=== PATIENT | female | born 1950 | race Caucasian/White ===

== ENCOUNTER 2016-12-29 09:52 | Emergency (ER) | payer MEDICARE, MEDICAID ==
--- NOTE | 2016-12-29 12:18 | RAD ---
CHEST 2 VIEWS: Date: 12/29/16 Comparison made with the 12/05/[address] [facility]. FINDINGS: Findings of COPD are present as usual in this patient. No acute lobar consolidation or effusion was appreciated. A linear infiltrate overlying the heart on the lateral view is a chronic finding in thi s patient and seems no different than before. An old vertebroplasty is noted. I see no findings sugg estive of current pneumonia. Calcification is seen in the aortic arch. IMPRESSION: COPD and chronic changes as noted, but no acute findings. POS: HOME
== END 2016-12-29 10:54 | disposition home or self-care (01) ==
LOC: BURERS 09:52
DX: J18.9 Pneumonia, unspecified organism (principal); I10 Essential (primary) hypertension; J44.9 Chronic obstructive pulmonary disease, unspecified; Z87.891 Personal history of nicotine dependence
CPT/HCPCS: 71020; 99283

== ENCOUNTER 2017-04-05 10:55 | Inpatient (IN) | payer MEDICARE, MEDICAID ==
[2017-04-05] MEDS ORDERED: methylPREDNISolone Sod Succ/PF 125 MG/2 ML VIAL ONE (11:19)
[2017-04-05 11:32] LABS: #Basophils 0.1 thou/uL (0.0-0.2); #Eosinphils 0.2 thou/uL (0.0-0.7); #Lymphocytes 1.6 thou/uL (1.20-3.40); #Monocytes 1.6 thou/uL (0.11-0.59); #Neutrophils 15.4 thou/uL (1.40-6.50); %Basophils 0.7 % (0.0-1.0); %Eosinophils 1.2 % (0.0-10.0); %Lymphocytes 8.2 % (21.0-51.0); %Monocytes 8.4 % (0.0-10.0); %Neutrophils 81.5 % (42.0-75.0); Hemoglobin 15.2 g/dL (12.0-16.0); Mean Corpuscular HGB CONC 34.2 g/dL (32.0-36.0); Mean Corpuscular Hemoglobin 31.6 pg (27.0-31.0); Mean Corpuscular Volume 92.5 fl (81.0-99.0); Mean Platelet Volume 7.3 fL (7.4-10.4); Platelet Count 384 thou/uL (130-400); RBC Distribution Width 12.4 % (11.5-14.5); Red Blood Cell (RBC) Count 4.79 mill/uL (4.20-5.40); White Blood Cell (WBC) Count 18.9 thou/uL (4.8-10.8)
[2017-04-05 11:41] LABS: ALT (SGPT) 29 U/L (8-55); AST (SGOT) 31 U/L (5-34); Albumin 4.4 g/dL (3.4-4.8); Alkaline Phosphatase 83 U/L (40-150); Anion Gap 15 mmol/L (10-20); BUN (Urea Nitrogen) 11 mg/dL (9.8-20.1); Bilirubin, Total 0.7 mg/dL (0.2-1.2); CKMB 1.5 ng/mL (0-6.6); Calc. Creatinine Clearance 0 mL/min (70-130); Calcium 8.9 mg/dL (7.8-10.44); Carbon Dioxide 25 mmol/L (23-31); Chloride 96 mmol/L (98-107); Estimated GFR-MDRD 64; Globulin 3.7 g/dL (2.4-3.5); Glucose 100 mg/dL (80-115); Potassium 3.4 mmol/L (3.5-5.1); Protein, Total 8.1 g/dL (6.0-8.3); Sodium 133 mmol/L (136-145); Troponin I 0.014 ng/mL (< 0.028)
[2017-04-05] MEDS: Acetaminophen 325 MG TAB PO PRN (14:44)
--- NOTE | 2017-04-05 17:34 | RAD ---
TWO VIEW CHEST 04/05/17 COMPARISON: 01/30/17 INDICATION: URI. FINDINGS: Lungs are hyperinflated. Status post vertebroplasty again seen at the low thoracic spine with chroni c compression deformity. Stable linear density overlying the cardiac silhouette on the lateral view. No significant interval change. IMPRESSION: COPD. POS: COCO
[2017-04-05] MEDS ORDERED: Ondansetron ODT 4 MG TAB PO PRN (18:12)
[2017-04-05] MEDS ORDERED: Loperamide HCl 2 MG CAP PO PRN (18:12)
[2017-04-05] MEDS: Acetaminophen/Codeine 30-300mg Tablet PO PRN (19:31)
[2017-04-05] MEDS: Mometasone/Formoterol 60 PUFF AER INH SCH (19:37)
[2017-04-05] MEDS: Lorazepam 0.5 MG TAB PO PRN (19:45)
[2017-04-05] MEDS: Calcitonin,Salmon,Synthetic 200 Units 3.7 ML PUMP EA NARE SCH (22:02)
[2017-04-05] MEDS: Cyclobenzaprine 10 MG TAB PO SCH (22:03)
[2017-04-06] MEDS: Levothyroxine Sodium 100 MCG TAB PO SCH (06:10)
[2017-04-06] MEDS: Mometasone/Formoterol 60 PUFF AER INH SCH ×2 (06:12→18:40)
[2017-04-06 06:13] LABS: Anion Gap 16 mmol/L (10-20); BUN (Urea Nitrogen) 12 mg/dL (9.8-20.1); Calc. Creatinine Clearance 0 mL/min (70-130); Calcium 8.1 mg/dL (7.8-10.44); Carbon Dioxide 21 mmol/L (23-31); Chloride 94 mmol/L (98-107); Estimated GFR-MDRD 69; Glucose 187 mg/dL (80-115); Sodium 128 mmol/L (136-145)
[2017-04-06 06:24] LABS: Band 4 % (5-11); Burr Cells SLIGHT = 2-5 cells (100X) (0-1/hpf); Hemoglobin 13.8 g/dL (12.0-16.0); Large Platelets SLIGHT; Lymphocytes 4 % (21-51); MDiff Complete? YES; Mean Corpuscular HGB CONC 35.7 g/dL (32.0-36.0); Mean Corpuscular Hemoglobin 32.5 pg (27.0-31.0); Mean Corpuscular Volume 91.2 fl (81.0-99.0); Mean Platelet Volume 7.1 fL (7.4-10.4); Monocytes 1 % (0-10); Neutrophil 91 % (42-75); PLT Morphology Comment Appears Adequate; Platelet Count 340 thou/uL (130-400); RBC Distribution Width 12.5 % (11.5-14.5); Red Blood Cell (RBC) Count 4.25 mill/uL (4.20-5.40); White Blood Cell (WBC) Count 25.4 thou/uL (4.8-10.8)
[2017-04-06] MEDS: Cyclobenzaprine 10 MG TAB PO SCH (07:00)
[2017-04-06] MEDS ORDERED: FOLIC ACID PO SCH (09:00)
[2017-04-06] MEDS ORDERED: VIT D3 PO SCH (09:00)
[2017-04-06] MEDS ORDERED: VIT C PO SCH (09:00)
[2017-04-06] MEDS ORDERED: [UNRECOGNIZED DRUG - OTHER] PO SCH (09:00)
[2017-04-06] MEDS ORDERED: IRON CARBONYL PO SCH (09:00)
[2017-04-06] MEDS ORDERED: B6 PO SCH (09:00)
[2017-04-06] MEDS ORDERED: VIT B12 PO SCH (09:00)
[2017-04-06] MEDS ORDERED: [UNRECOGNIZED DRUG - MIXTURE] PO SCH (09:00)
[2017-04-06] MEDS ORDERED: B12 PO SCH (09:00)
[2017-04-06] MEDS ORDERED: B2 PO SCH (09:00)
[2017-04-06] MEDS: Meloxicam 7.5 MG TAB PO SCH (09:24)
[2017-04-06] MEDS: Loratadine 10 MG TAB PO SCH (09:24)
[2017-04-06] MEDS: Losartan Potassium 50 MG TAB PO SCH (09:25)
[2017-04-06] MEDS: Calcium Carbonate + Vit D 500 MG TAB PO SCH (09:27)
[2017-04-06] MEDS: Acetaminophen/Codeine 30-300mg Tablet PO PRN ×2 (12:02→18:42)
[2017-04-06] MEDS ORDERED: guaiFENesin ER 600 MG TAB PO SCH (13:00)
[2017-04-06] MEDS ORDERED: Cyclobenzaprine 10 MG TAB PO PRN (13:09)
[2017-04-06] MEDS ORDERED: Potassium Chloride 20 MEQ TAB PO SCH (13:15)
[2017-04-06] MEDS: Acetaminophen 325 MG TAB PO PRN (13:58)
--- NOTE | 2017-04-06 20:35 | HP ---
CHIEF COMPLAINT: Shortness of breath and congestion. HISTORY OF PRESENT ILLNESS: Ms. Rodriguez is a 66-year-old white female patient of the [facility] who apparently had been experiencing upper respiratory type symptoms intermittently for the past couple of months. She has a history of pneumonia in 01/2017. This apparently improved and began experiencing cough, congestion, and upper respiratory type symptoms a few weeks ago. She was put on a course of Augmentin by her primary care provider which she finished approximately 6 days prior to her ER presentation. The patient apparently was being seen in the [facility] today for followup and had no improvement of symptoms and therefore it was recommended transfer to [facility] for further workup. In the ER, the patient was notably short of breath which improved with nebulizer treatments. ER doctor felt that she had a cloudy left lung base on her chest x-ray that seemed slightly worse from previous chest x-ray. Also, of note, the patient with a history of autoimmune disease that is now managed with calcitonin in each naris and is followed by Dr. Marie with Rheumatology. Therefore, she considers herself immunocompromised. The patient also has been placed on home O2 within the last couple months as well to be worn at night. She states that she has been experiencing increasing amount of chest congestion, sputum production that is white in color, wheezing, and dyspnea over the last couple of days. Her white count was significantly elevated in the ER at 18.9 and she was slightly hypoxic on room air. Therefore, the patient has been admitted on suspicion of pneumonia and COPD exacerbation. PAST MEDICAL HISTORY: 1. Chronic obstructive pulmonary disease; PFTs 11/2016 showed severe reduction in expiratory flow with moderate reduction in vital capacity. There was minimal improvement in flows following bronchodilator therapy. TLC was increased, RV is hyperinflated. 2. Chronic low back pain. 3. Degenerative joint disease. 4. Anxiety. 5. Celiac disease. 6. Former smoker, quit 4 years ago. 7. History of L1, T11, T12 fracture. 8. Surgical hypothyroidism, status post thyroidectomy for hyperthyroidism. 9. Hypertension. 10. O2 dependent at bedtime. PAST SURGICAL HISTORY: 1. Thyroidectomy. 2. Left hip surgery. 3. Tubal ligation. 4. Breast surgery. 5. Kyphoplasty of T11. 6. Ulnar nerve surgery. ALLERGIES: 1. CLARITHROMYCIN. 2. ERYTHROMYCIN. 3. FENTANYL. 4. HYDROCODONE. 5. PENICILLIN. Of note, the patient states she recently completed Augmentin. 6. PERCOCET. 7. SHELLFISH. CURRENT MEDICATIONS: 1. Levothyroxine 100 mcg 1 p.o. q. day. 2. Losartan 50 mg one p.o. q. day. 3. Metoprolol succinate 25 mg p.o. b.i.d. 4. Hydrochlorothiazide 12.5 mg 1 p.o. q. day. 5. Ativan 0.5 mg 1 p.o. b.i.d. 6. Tylenol with Codeine No. 4 300/60 one p.o. b.i.d. 7. Flexeril 10 mg 1 p.o. b.i.d. 8. Advair 500/50 one inhalation b.i.d. 9. DuoNeb 0.5 mg/3 mg/3 mL, 3 mL nebulized 3 times a day. 10. Calcitonin salmon 1 spray in one naris, alternating naris daily. 11. Calcium carbonate plus vitamin D 1000/400 daily. 12. Loperamide HCL 2 mg p.o. t.i.d. p.r.n. 13. Claritin 10 mg daily. 14. Meloxicam 7.5 mg daily. 15. Zofran 4 mg p.o. q.6 hours p.r.n. SOCIAL HISTORY: The patient is a former smoker, quit approximately 4 years ago. Social drinking, which is rare. No drug use. FAMILY HISTORY: Coronary artery disease. REVIEW OF SYSTEMS: General: The patient denies fever. Positive fatigue. No weakness. No recent weight loss or weight gain. HEENT: Denies sore throat, rhinorrhea, postnasal drip, ear pain or vision changes. Cardiovascular: The patient reports chest pain with cough, pleuritic. Denies palpitations, history of congestive heart failure, leg edema, orthopnea, PND. Respiratory: Positive wheezing, positive sputum production. No hemoptysis. Positive cough. Positive shortness of breath. Gastrointestinal: The patient denies diarrhea or constipation. History of celiac disease on a gluten free diet. Denies abdominal pain. Denies vomiting or hematemesis. The patient admits to nausea. Genitourinary: Denies dysuria, gross hematuria, incomplete emptying, voiding dysfunction. Hematologic: The patient denies easy bleeding or bruising. Lymphatic: The patient denies swelling or lymph node enlargement. Psychiatric: The patient admits to anxiety. Denies depression. Neurologic: The patient admits to headache, localized to the top of the head. Denies blurred vision, slurred speech, focal weakness, numbness, or paresthesia. Musculoskeletal: The patient with chronic generalized joint pain. PHYSICAL EXAMINATION: VITAL SIGNS: In the ED, blood pressure 151/96, heart rate 74, respirations 18, 0 pain, 91% on room air sat. At my exam, temperature 98.7, pulse 73, respirations 20, and 92% on room air which subsequently dropped to 89%. The patient was placed on 2 liters which leads her 94% on 2 liters per minute. Blood pressure 152/86 which improved to 139/85. GENERAL: Well-developed, thin female, alert and oriented x3, in no acute distress with nasal cannula in place, sitting up in bed. Speaks in complete sentences. HEENT: Normocephalic, atraumatic. Pupils equally round and reactive to light and accommodation. NEUROLOGICAL: Extraocular muscles intact. Nares are patent without discharge. Tongue protrudes in the midline. NECK: Supple, without lymphadenopathy, thyromegaly, JVD or bruit. HEART: Regular rate and rhythm with normal S1, S2, Distant heart sounds. No murmurs, clicks, rubs, or gallops. RESPIRATORY: Diminished air entry throughout with expiratory greater than inspiratory wheezing in all lung ralph, more prominent at the bases. Coarse rhonchi noted diffusely. ABDOMEN: Positive bowel sounds in all four quadrants, soft, nontender, nondistended, no masses, guarding, or rebound tenderness. EXTREMITIES: No cyanosis, clubbing, edema. NEUROLOGIC: Cranial nerves II-XII grossly intact. No focal deficits. PSYCHIATRIC: Normal speech. No thought disorder, nonanxious appearing. LABORATORY DATA: White count 18.9, 81.5% neutrophils, and 8.2% lymphocytes. Hemoglobin 15.2, hematocrit 44.3, and platelets 384. Sodium 133, potassium 3.4 , chloride 96, bicarb 25, BUN 11, creatinine 0.88, glucose 100, calcium 8.9, total bilirubin 0.7, AST 31, ALT 29, alkaline phosphatase 83, total protein 8.1 , albumin 4.4, globulin 3.7. CK-MB 1.5, troponin I 0.014. BNP 101.8. IMAGING: Chest x-ray read by a radiologist shows COPD with no acute findings and no significant change since her prior past chest x-ray compared. ASSESSMENT AND PLAN: 1. Chronic obstructive pulmonary disease exacerbation. The patient was started on Levaquin in the ER 750 IV q.24 hours. We will continue this on the floor. We will add IV Solu-Medrol 40 mg IV q.6 h. We will continue DuoNeb q.6 hours. We will continue continuous O2. We will resume the patient's inhaled corticosteroid and long-acting beta agonist. Follow up blood cultures. Get sputum culture. 2. Leukocytosis with left shift. We will repeat chest x-ray if indicated during her hospital course. 3. Hyponatremia/hypokalemia. The patient's hydrochlorothiazide will be held. We will repeat basic metabolic profile in the morning. 4. Osteoporosis. The patient will be continued on Miacalcin per her home dose , her antiinflammatory medications, and her narcotic pain medication. 5. Anxiety. The patient will be continued on her benzodiazepine p.r.n. 6. Hypothyroidism. The patient will be continued on her levothyroxine. We will check a TSH. 7. Prophylaxis. The patient will be started on a proton pump inhibitor and sequential compression devices have been placed. 8. Code status. The patient refers FULL CODE STATUS. MTDD
[2017-04-06] MEDS: Calcitonin,Salmon,Synthetic 200 Units 3.7 ML PUMP EA NARE SCH (21:08)
[2017-04-06] MEDS: guaiFENesin ER 600 MG TAB PO SCH (21:08)
[2017-04-07 05:48] LABS: Anion Gap 16 mmol/L (10-20); BUN (Urea Nitrogen) 17 mg/dL (9.8-20.1); Calc. Creatinine Clearance 0 mL/min (70-130); Calcium 8.2 mg/dL (7.8-10.44); Carbon Dioxide 18 mmol/L (23-31); Chloride 99 mmol/L (98-107); Estimated GFR-MDRD 70; Glucose 190 mg/dL (80-115); Potassium 4.2 mmol/L (3.5-5.1); Sodium 129 mmol/L (136-145)
[2017-04-07 06:02] LABS: Hemoglobin 13.4 g/dL (12.0-16.0); Mean Corpuscular HGB CONC 34.3 g/dL (32.0-36.0); Mean Corpuscular Hemoglobin 31.4 pg (27.0-31.0); Mean Corpuscular Volume 91.7 fl (81.0-99.0); Mean Platelet Volume 7.4 fL (7.4-10.4); Platelet Count 317 thou/uL (130-400); RBC Distribution Width 12.5 % (11.5-14.5); Red Blood Cell (RBC) Count 4.26 mill/uL (4.20-5.40)
[2017-04-07] MEDS: Levothyroxine Sodium 100 MCG TAB PO SCH (06:04)
[2017-04-07] MEDS: Mometasone/Formoterol 60 PUFF AER INH SCH ×2 (06:07→18:25)
[2017-04-07 06:08] LABS: Band 1 % (5-11); Eosinophils 1 % (0-10); Lymphocytes 3 % (21-51); MDiff Complete? YES; Monocytes 4 % (0-10); Neutrophil 91 % (42-75); PLT Morphology Comment Appears Adequate; RBC Morphology Normal
[2017-04-07] MEDS: Acetaminophen/Codeine 30-300mg Tablet PO PRN ×2 (06:25→20:37)
--- NOTE | 2017-04-07 07:54 | RAD ---
2 VIEW CHEST: Date: 04/07/17 COMPARISON: 04/05/17. INDICATION: Cough, follow-up. FINDINGS: There remains pulmonary hyperinflation. Linear density overlying cardiac silhouette on the lateral p rojection persists. There has been no significant interval change from examination 2 days prior. IMPRESSION: Stable chest. POS: COCO
[2017-04-07] MEDS: Calcium Carbonate + Vit D 500 MG TAB PO SCH (08:40)
[2017-04-07] MEDS: Losartan Potassium 50 MG TAB PO SCH (08:40)
[2017-04-07] MEDS: Meloxicam 7.5 MG TAB PO SCH (08:40)
[2017-04-07] MEDS: guaiFENesin ER 600 MG TAB PO SCH ×2 (08:40→20:36)
[2017-04-07] MEDS: Potassium Chloride 20 MEQ TAB PO SCH (08:40)
[2017-04-07] MEDS: Loratadine 10 MG TAB PO SCH (08:41)
[2017-04-07] MEDS: Acetaminophen 325 MG TAB PO PRN (16:52)
[2017-04-07 18:51] LABS: Bilirubin Negative (Negative); Blood, Urine Negative (Negative); Clarity Clear (Clear); Glucose, Urine (Dipstick) Negative (Negative); Leukocyte Negative (Negative); Nitrite Negative (Negative); Protein, Urine (Dipstick) Negative (Neg-Trace); Specific Gravity, Urine 1.015 (1.005-1.030); Urobilinogen 0.2 mg/dL (0.2-1.0); pH, Urine 7.5 (5.0-9.0)
[2017-04-07 18:57] LABS: Bacteria/HPF None Seen HPF (None Seen); Crystals/HPF None Seen HPF (Negative); Hyaline Casts/LPF NONE SEEN LPF (0-3 Hyaline); Other Casts/LPF None Seen LPF (0-3 Hyaline); Oval Fat Bodies/HPF None Seen HPF (None Seen); RBC/HPF 0-3 HPF (0-3); Renal Epithelial None Seen HPF (0-3); Sperm/HPF None Seen HPF (None Seen); Squamous Epithelial None Seen HPF (0-3); Transitional Epithelial NONE SEEN HPF (0-3); Trichomonas/HPF None Seen HPF (None Seen); WBC/HPF None Seen HPF (0-3); Yeast-All Forms None Seen HPF (None Seen)
[2017-04-07] MEDS: Calcitonin,Salmon,Synthetic 200 Units 3.7 ML PUMP EA NARE SCH (20:34)
[2017-04-07] MEDS: Lorazepam 0.5 MG TAB PO PRN (20:36)
[2017-04-08 05:41] LABS: #Basophils 0.1 thou/uL (0.0-0.2); #Lymphocytes 1.5 thou/uL (1.20-3.40); #Monocytes 1.7 thou/uL (0.11-0.59); #Neutrophils 30.6 thou/uL (1.40-6.50); %Basophils 0.2 % (0.0-1.0); %Lymphocytes 4.5 % (21.0-51.0); %Neutrophils 90.3 % (42.0-75.0); Hemoglobin 13.4 g/dL (12.0-16.0); Mean Corpuscular HGB CONC 34.8 g/dL (32.0-36.0); Mean Corpuscular Hemoglobin 32.1 pg (27.0-31.0); Mean Corpuscular Volume 92.2 fl (81.0-99.0); Mean Platelet Volume 6.7 fL (7.4-10.4); Platelet Count 394 thou/uL (130-400); RBC Distribution Width 12.7 % (11.5-14.5); Red Blood Cell (RBC) Count 4.18 mill/uL (4.20-5.40); White Blood Cell (WBC) Count 33.9 thou/uL (4.8-10.8)
[2017-04-08 05:48] LABS: Anion Gap 13 mmol/L (10-20); BUN (Urea Nitrogen) 22 mg/dL (9.8-20.1); Calc. Creatinine Clearance 0 mL/min (70-130); Calcium 8.2 mg/dL (7.8-10.44); Carbon Dioxide 20 mmol/L (23-31); Chloride 102 mmol/L (98-107); Estimated GFR-MDRD 67; Glucose 130 mg/dL (80-115); Potassium 4.2 mmol/L (3.5-5.1); Sodium 131 mmol/L (136-145)
[2017-04-08] MEDS: Levothyroxine Sodium 100 MCG TAB PO SCH (06:24)
[2017-04-08] MEDS: Mometasone/Formoterol 60 PUFF AER INH SCH ×2 (06:28→20:29)
[2017-04-08] MEDS: guaiFENesin ER 600 MG TAB PO SCH ×2 (08:31→20:32)
[2017-04-08] MEDS: Calcium Carbonate + Vit D 500 MG TAB PO SCH (08:32)
[2017-04-08] MEDS: Potassium Chloride 20 MEQ TAB PO SCH (08:32)
[2017-04-08] MEDS: predniSONE 20 MG TAB PO SCH (08:33)
[2017-04-08] MEDS: Losartan Potassium 50 MG TAB PO SCH (08:33)
[2017-04-08] MEDS: Loratadine 10 MG TAB PO SCH (08:33)
[2017-04-08] MEDS: Meloxicam 7.5 MG TAB PO SCH (08:34)
[2017-04-08 19:03] VITALS: TEMP 97.7
[2017-04-08] MEDS: Calcitonin,Salmon,Synthetic 200 Units 3.7 ML PUMP EA NARE SCH (20:31)
[2017-04-09] MEDS: Levothyroxine Sodium 100 MCG TAB PO SCH (05:58)
[2017-04-09] MEDS: Mometasone/Formoterol 60 PUFF AER INH SCH (05:58)
[2017-04-09 06:07] LABS: Anion Gap 10 mmol/L (10-20); BUN (Urea Nitrogen) 27 mg/dL (9.8-20.1); Calc. Creatinine Clearance 0 mL/min (70-130); Carbon Dioxide 21 mmol/L (23-31); Chloride 105 mmol/L (98-107); Estimated GFR-MDRD 61; Glucose 112 mg/dL (80-115); Potassium 4.1 mmol/L (3.5-5.1); Sodium 132 mmol/L (136-145)
[2017-04-09 06:13] LABS: #Basophils 0.2 thou/uL (0.0-0.2); #Lymphocytes 1.6 thou/uL (1.20-3.40); #Monocytes 1.4 thou/uL (0.11-0.59); #Neutrophils 15.3 thou/uL (1.40-6.50); %Basophils 0.8 % (0.0-1.0); %Eosinophils 0.1 % (0.0-10.0); %Lymphocytes 8.7 % (21.0-51.0); %Monocytes 7.4 % (0.0-10.0); Hemoglobin 13.4 g/dL (12.0-16.0); Mean Corpuscular HGB CONC 35.2 g/dL (32.0-36.0); Mean Corpuscular Hemoglobin 32.7 pg (27.0-31.0); Mean Corpuscular Volume 92.9 fl (81.0-99.0); Mean Platelet Volume 6.7 fL (7.4-10.4); Platelet Count 366 thou/uL (130-400); RBC Distribution Width 12.9 % (11.5-14.5); White Blood Cell (WBC) Count 18.4 thou/uL (4.8-10.8)
[2017-04-09 06:29] VITALS: BP 117/74
[2017-04-09] MEDS: Potassium Chloride 20 MEQ TAB PO SCH (08:39)
[2017-04-09] MEDS: guaiFENesin ER 600 MG TAB PO SCH (08:40)
[2017-04-09] MEDS: predniSONE 20 MG TAB PO SCH (08:41)
[2017-04-09] MEDS: Meloxicam 7.5 MG TAB PO SCH (08:41)
[2017-04-09] MEDS: Calcium Carbonate + Vit D 500 MG TAB PO SCH (08:41)
[2017-04-09] MEDS: Loratadine 10 MG TAB PO SCH (08:42)
[2017-04-09] MEDS: Losartan Potassium 50 MG TAB PO SCH (08:42)
[2017-04-09] MEDS ORDERED: Floranex Packet PO SCH (09:00)
--- NOTE | 2017-04-09 18:04 | DIS ---
DATE OF ADMISSION: 04/05/2017 DATE OF DISCHARGE: 04/09/2017 ADMISSION DIAGNOSES: 1. Left lower lobe pneumonia. 2. Chronic obstructive pulmonary disease with exacerbation. 3. Hyponatremia. 4. Hypokalemia. 5. Neutrophilic leukocytosis. DISCHARGE DIAGNOSES: 1. Pneumonia ruled out. 2. Chronic obstructive pulmonary disease exacerbation. 3. Pseudomonas aeruginosa in the sputum. 4. Hyponatremia, medication caused. 5. Hypokalemia, medication caused. 6. Neutrophilic leukocytosis, improved. ATTENDING PHYSICIAN: Dr. Elena Shah. PROCEDURES: 1. Blood culture x2, date of admission negative. 2. Sputum culture positive for Pseudomonas aeruginosa, sensitive to Levaquin. 3. White count 18.9 on admission which peaked at 34, which subsequently improved to 18.4 on the date of discharge with left shift. 4. Serum sodium 133 on admission which depressed to 128 the date following admission, which subsequently improved to 132 on the date of discharge. 5. Potassium initially replete at 3.4 on the date of admission, down to 3.0 the date following admission and increased to 4.1 on the date of discharge. 6. BNP 101.8. 7. Cardiac enzymes negative x1 set. 8. TSH 0.6818. 9. Urinalysis unremarkable. 10. Chest x-ray from the date of admission showing stable chest in comparison to 01/30/2017 and chronic obstructive pulmonary disease. 11. Repeat chest x-ray on 04/07/2017 stable. HISTORY AND PHYSICAL: Please see dictated report from the date of admission from myself. HOSPITAL COURSE: Ms. Rodriguez is a 66-year-old female patient of the [facility] who has been attending our outpatient pulmonary rehab who has experienced upper respiratory symptoms for the past couple of months and presented to the ER after being seen in the ambulatory clinic with increased symptoms of shortness of breath and cough productive of copious sputum. The patient was admitted and initially thought to possibly have a left lower lobe infiltrate when compared to previous films. However, Radiology subsequently ruled that out. She was placed prophylactically on Levaquin 750 mg IV q.24 hours. She also has significant wheezing in all lung ralph and was placed on supportive O2 at 2 liters per minute which corrected her O2 saturation. She was placed on nebulizers and given incentive spirometry instruction. She was started on IV Solu-Medrol which helped to improve her wheezing dramatically. Patient initially with hyponatremia known to be on hydrochlorothiazide as an outpatient. This was held during her admission. We saw slow improvement and therefore 1500 mL fluid restriction was put in place. Her sodium is improved at her discharge. We will continue to hold her hydrochlorothiazide as an outpatient. Regarding her hypertension, without the hydrochlorothiazide, her systolic blood pressure has remained in the 110s. She has not needed any additional antihypertensives during her hospital stay. Patient also seen to have hypokalemia. This improved with supplementation and she will continue on this as an outpatient. Again, this was thought due to hydrochlorothiazide she is taking as an outpatient. The patient with a significant neutrophilic leukocytosis with a left shift. The bandemia improved with administration of IV antibiotics. Part of her leukocytosis was thought as a result of steroid administration. This did improve dramatically on the day prior to her discharge. She also was investigated further possible sources of infection including a urinalysis which was negative. The patient clinically has improved dramatically. She denies any new symptoms since her admission. Her dyspnea is improved. She has less cough and less sputum production. Her exercise capacity is back to her baseline. She does have one additional session of pulmonary rehabilitation that is pending and she can complete that at her convenience. DISPOSITION: Discharge to home. CONDITION: Good. MEDICATIONS: 1. Probiotic 1 p.o. q. day. 2. DuoNeb 3 mL nebulize q.6h. p.r.n. 3. Miacalcin 1 spray in each naris every other day. 4. Os-Robert plus vitamin D 1000 mcg p.o. q. day. 5. Cyclobenzaprine 10 mg p.o. q.8h. p.r.n. 6. Mucinex 1200 mg p.o. q.12h. x10 days. 7. Patient has completed a 5-day course of IV Levaquin 750 mg. 8. Synthroid 100 mcg p.o. q. day. 9. Imodium 2 mg p.o. t.i.d. p.r.n. diarrhea. 10. Zyrtec 10 mg p.o. q. day. 11. Ativan 0.5 mg p.o. q.6h. p.r.n. 12. Cozaar 50 mg p.o. q. day. 13. Mobic 7.5 mg p.o. q. day. 14. Toprol-XL 25 mg p.o. b.i.d. 15. Advair 500/50 one inhalation b.i.d. 16. Ondansetron hydrochloride ODT 4 mg p.o. q.6h. p.r.n. nausea. 17. Potassium chloride 40 mEq p.o. q.a.m., #30. 18. Prednisone taper over 2 weeks 60 mg p.o. q. day x4 days, then 40 mg p.o. q. day x4 days, then 20 mg p.o. q. day x3 days, then 10 mg p.o. q. day x3 days, then stop. The patient will follow up with her primary care provider at the [facility] in 10-14 days. MICHELLE
== END 2017-04-09 14:25 | disposition home or self-care (01) | DRG 191 ==
LOC: BURERS 10:55 → BURMED 12:35
PROVIDERS: ADMIT Family Medicine; ATTEND Family Medicine
DX: J44.1 Chronic obstructive pulmonary disease with (acute) exacerbation (principal); E87.1 Hypo-osmolality and hyponatremia; Z99.81 Dependence on supplemental oxygen; R84.5 Abnormal microbiological findings in specimens from respiratory organs and thorax; E87.6 Hypokalemia; D72.828 Other elevated white blood cell count; I10 Essential (primary) hypertension; T50.2X5A Adverse effect of carbonic-anhydrase inhibitors, benzothiadiazides and other diuretics, initial encounter; D72.825 Bandemia; T38.0X5A Adverse effect of glucocorticoids and synthetic analogues, initial encounter; M06.9 Rheumatoid arthritis, unspecified; E89.0 Postprocedural hypothyroidism; M19.90 Unspecified osteoarthritis, unspecified site; F41.9 Anxiety disorder, unspecified; Z87.891 Personal history of nicotine dependence; K90.0 Celiac disease; M54.5 Low back pain; M81.0 Age-related osteoporosis without current pathological fracture; Z79.891 Long term (current) use of opiate analgesic
CPT/HCPCS: 36415; 71020; 80048; 80053; 81001; 82553; 83880; 84443; 84484; 85025; 87040; 87070; 87077; 87086; 87186; 87205; 93005; 94640; 94664; 96365; 96375; A4216; J1956; J2920; J2930; J7506; J7620

== ENCOUNTER 2017-04-19 10:12 | Outpatient (CLI) | payer MEDICARE, MEDICAID ==
[2017-04-19 11:31] LABS: Anion Gap 14 mmol/L (10-20); BUN (Urea Nitrogen) 21 mg/dL (9.8-20.1); Calc. Creatinine Clearance 0 mL/min (70-130); Calcium 8.5 mg/dL (7.8-10.44); Carbon Dioxide 26 mmol/L (23-31); Chloride 100 mmol/L (98-107); Estimated GFR-MDRD 60; Glucose 87 mg/dL (80-115); Potassium 4.9 mmol/L (3.5-5.1); Sodium 135 mmol/L (136-145)
[2017-04-19 11:58] LABS: Band 2 % (5-11); Hemoglobin 14.3 g/dL (12.0-16.0); Lymphocytes 8 % (21-51); MDiff Complete? YES; Mean Corpuscular HGB CONC 34.5 g/dL (32.0-36.0); Mean Corpuscular Hemoglobin 32.9 pg (27.0-31.0); Mean Corpuscular Volume 95.2 fl (81.0-99.0); Mean Platelet Volume 6.8 fL (7.4-10.4); Monocytes 5 % (0-10); Neutrophil 85 % (42-75); Platelet Count 346 thou/uL (130-400); RBC Distribution Width 13.5 % (11.5-14.5); Red Blood Cell (RBC) Count 4.35 mill/uL (4.20-5.40); White Blood Cell (WBC) Count 22.7 thou/uL (4.8-10.8)
== END 2017-04-19 10:13 | disposition home or self-care (01) ==
LOC: HPCALD 10:12
PROVIDERS: ATTEND Family Medicine
DX: E87.1 Hypo-osmolality and hyponatremia (principal); D72.825 Bandemia
CPT/HCPCS: 36415; 80048; 85025

== ENCOUNTER 2017-04-19 10:23 | Outpatient (CLI) | payer MEDICARE, MEDICAID ==
--- NOTE | 2017-04-19 13:20 | RAD ---
PA AND LATERAL VIEWS CHEST: HISTORY: Acute bronchitis. FINDINGS: Comparison is made with the arteriovenous malformation of 04/07/17. The heart size is normal. The aorta is tortuous. Lungs are hyperexpanded. No pneumothoraces or pl eural effusions are seen. There is linear density overlying the heart in the lateral projection wit hout significant interval change. Postop changes of vertebroplasty in the lower thoracic spine are redemonstrated. IMPRESSION: Stable exam. POS: KAELA
== END 2017-04-19 10:24 | disposition home or self-care (01) ==
LOC: BURRAD 10:23
PROVIDERS: ATTEND Family Medicine
DX: J20.9 Acute bronchitis, unspecified (principal)
CPT/HCPCS: 71020

== ENCOUNTER 2017-04-30 15:43 | Outpatient (CLI) | payer MEDICARE, MEDICAID ==
--- NOTE | 2017-04-30 21:05 | RAD ---
RIGHT HIP THREE VIEWS 04/30/17 No fracture, dislocation, or acute bony change was seen. The joint space is minimally narrowed. Ther e is a very minor amount of bony spurring present, but it is not at all impressive. The adjacent pub ic ring appears intact. IMPRESSION: Very minor degenerative changes. POS: HOME
== END 2017-04-30 15:44 | disposition home or self-care (01) ==
LOC: BURRAD 15:43
PROVIDERS: ATTEND Family Medicine
DX: M25.551 Pain in right hip (principal)

== ENCOUNTER 2017-05-17 09:53 | Outpatient (CLI) | payer MEDICARE, MEDICAID ==
[2017-05-17 11:00] LABS: #Basophils 0.1 thou/uL (0.0-0.2); #Eosinphils 0.2 thou/uL (0.0-0.7); #Lymphocytes 1.9 thou/uL (1.20-3.40); #Monocytes 1.3 thou/uL (0.11-0.59); #Neutrophils 9.9 thou/uL (1.40-6.50); %Basophils 0.9 % (0.0-1.0); %Eosinophils 1.6 % (0.0-10.0); %Lymphocytes 14.4 % (21.0-51.0); %Monocytes 9.5 % (0.0-10.0); %Neutrophils 73.6 % (42.0-75.0); Hemoglobin 14.5 g/dL (12.0-16.0); Mean Corpuscular HGB CONC 34.1 g/dL (32.0-36.0); Mean Corpuscular Hemoglobin 32.6 pg (27.0-31.0); Mean Corpuscular Volume 95.8 fl (81.0-99.0); Mean Platelet Volume 7.1 fL (7.4-10.4); Platelet Count 348 thou/uL (130-400); RBC Distribution Width 13.3 % (11.5-14.5); Red Blood Cell (RBC) Count 4.44 mill/uL (4.20-5.40); White Blood Cell (WBC) Count 13.4 thou/uL (4.8-10.8)
[2017-05-17 11:11] LABS: Amphetamine Not Detected (NotDetected); Barbiturates Screen Not Detected (NotDetected); Benzodiazepine Screen Detected (NotDetected); Cocaine Metabolite Screen Not Detected (NotDetected); Medtox Control Line Valid? VALID (VALID); Methadone Not Detected (NotDetected); Methamphetamine Not Detected (NotDetected); Opiate Screen Detected (NotDetected); Oxycodone Screen Not Detected (NotDetected); Phencyclidine (PCP) Not Detected (NotDetected); THC/Cannabinoid Screen Not Detected (NotDetected); Tricyclic Screen Not Detected (NotDetected)
== END 2017-05-17 09:54 | disposition home or self-care (01) ==
LOC: HPCALD 09:53
PROVIDERS: ATTEND Family Medicine
DX: D72.825 Bandemia (principal); Z79.891 Long term (current) use of opiate analgesic
CPT/HCPCS: 36415; 80306; 85025

== ENCOUNTER 2017-06-17 11:06 | Outpatient (CLI) | payer MEDICARE, MEDICAID ==
[2017-06-17 11:50] LABS: #Basophils 0.1 thou/uL (0.0-0.2); #Eosinphils 0.4 thou/uL (0.0-0.7); #Lymphocytes 1.7 thou/uL (1.20-3.40); #Neutrophils 6.7 thou/uL (1.40-6.50); %Basophils 1.5 % (0.0-1.0); %Eosinophils 3.9 % (0.0-10.0); %Lymphocytes 17.3 % (21.0-51.0); %Monocytes 10.1 % (0.0-10.0); %Neutrophils 67.3 % (42.0-75.0); Hemoglobin 14.8 g/dL (12.0-16.0); Mean Corpuscular HGB CONC 33.5 g/dL (32.0-36.0); Mean Corpuscular Hemoglobin 31.5 pg (27.0-31.0); Platelet Count 315 thou/uL (130-400); RBC Distribution Width 12.9 % (11.5-14.5)
== END 2017-06-17 11:07 | disposition home or self-care (01) ==
LOC: HPCALD 11:06
PROVIDERS: ATTEND Family Medicine
DX: D72.829 Elevated white blood cell count, unspecified (principal)
CPT/HCPCS: 36415; 85025